=== PATIENT | male | born 1955 | race Caucasian/White ===

== ENCOUNTER 2016-08-22 12:38 | Inpatient (IN) | payer OTHER ==
[~2016-08-22] VITALS: Ht 162.6 cm; Wt 73.9 kg
[~2016-08-22 12:38] MED LIST: ASPI-1159 PO; ATOR20TA PO; AZOPT RIGHTEYE; CALC0.253 PO; COR25 PO; FERR-63 PO; FURO40TA5 PO; Lisinopril PO; POTA10TA15 PO; TRAV2.5D OP
[2016-08-22] MEDS ORDERED: FUROSEMIDE 40MG/4ML VIAL IV STA (15:09)
[2016-08-22 15:26] LABS: BASOPHILS % 1.3 % (0.0-2.0); EOSINOPHILS % 1.2 % (0.0-5.0); HEMATOCRIT. 37.4 % (42.0-52.0); LYMPHOCYTES % 18.1 % (20.0-50.0); MEAN CORPUSCULAR HEMOGLOBIN 25.2 pg (28.0-32.0); MEAN CORPUSCULAR VOLUME 78.4 fL (80.0-94.0); MONOCYTES % 8.9 % (2.0-8.0); NEUTROPHILS % 70.5 % (40.0-76.0); PLATELET 254 x1000/uL (130-400); RED BLOOD CELL COUNT 4.76 mill/uL (4.7-6.1); RED CELL DISTRIBUTION WIDTH 16.6 % (11.6-14.6)
[2016-08-22 15:34] LABS: INR 1.2; PARTIAL THROMBOPLASTIN TIME 28.7 sec (24.0-34.0); PROTHROMBIN TIME 12.3 sec
[2016-08-22 15:35] LABS: CARBON DIOXIDE 26 mEq/L (21-32); CHLORIDE 108 mEq/L (98-107)
[2016-08-22 15:41] LABS: TROPONIN I 0.04 ng/mL (0.00-0.04)
[2016-08-22] MEDS ORDERED: NA PHOS,M-B/NA PHOS,DI-BA ENEMA 118ML PR PRN (16:45)
[2016-08-22] MEDS ORDERED: ACETAMINOPHEN 650MG SUPP PR PRN (16:45)
[2016-08-22] MEDS ORDERED: ACETAMINOPHEN 650MG/20.3ML UDC GT PRN (16:45)
[2016-08-22] MEDS ORDERED: ONDANSETRON HCL 4MG/2ML VIAL IV PRN (16:45)
[2016-08-22] MEDS ORDERED: HYDROCODONE/ACETAMINOPHEN 5/325MG TABLET PO PRN (16:45)
[2016-08-22] MEDS ORDERED: CLONIDINE 0.1MG TABLET PO PRN (16:45)
[2016-08-22] MEDS ORDERED: MAGNESIUM/ALUMINUM HYDROXIDE/SIMETHICONE 30ML UDC PO PRN (16:45)
[2016-08-22] MEDS ORDERED: IPRATROPIUM/ALBUTEROL 0.5-3(2.5)MG/3ML NEB INH PRN (16:45)
[2016-08-22] MEDS ORDERED: DIPHENHYDRAMINE 50MG/ML VIAL IV PRN (16:45)
[2016-08-22] MEDS ORDERED: FUROSEMIDE 40MG/4ML VIAL IV SCH (17:00)
[2016-08-22 18:15] VITALS: BP 148/98
[2016-08-22] MEDS ORDERED: CEFTRIAXONE 1,000 MG in DEXTROSE 5% WATER 25 ML IV SCH (18:30)
[2016-08-22] MEDS ORDERED: METO50TA5 PO (18:38)
[2016-08-22 18:44] LABS: CLARITY URINE CLEAR (CLEAR); COLOR URINE YELLOW (YELLOW); GLUCOSE URINE NEGATIVE (NEGATIVE); KETONES URINE NEGATIVE (NEGATIVE); LEUKOCYTE ESTERASE URINE NEGATIVE (NEGATIVE); NITRITE URINE NEGATIVE (NEGATIVE); OCCULT BLOOD URINE NEGATIVE (NEGATIVE); PH URINE 5.5 (4.5-8.0); PROTEIN URINE NEGATIVE (NEGATIVE); SPECIFIC GRAVITY URINE 1.009 (1.005-1.030); UROBILINOGEN URINE 0.2 E.U./dL (0.2-1.0)
[2016-08-22 18:51] LABS: BG BASE EXCESS -2.7 mmol/L (-2.0-2.0); BG CARBOXYHEMOGLOBIN 0.2 % (0.5-1.5); BG DEOXYHEMOGLOBIN 4.4 % (0.0-5.0); BG FRACTION INSPIRED OXYGEN 21; BG HCO3 ACT 20.7 mmol/L (22.0-26.0); BG METHEMOGLOBIN 0.1 % (0.0-1.5); BG OXYGEN SATURATION 95.6 % (92.0-98.5); BG OXYHEMOGLOBIN 95.3 % (94.0-97.0); BG PCO2 31.3 mmHg (35.0-45.0); BG PH 7.438 (7.350-7.450); BG PO2 84.9 mmHg (75.0-100.0); BG SAMPLE SITE LEFT BRACHIAL; BG TOTAL HEMOGLOBIN 11.8 g/dL (12.0-18.0); BG VENT MODE ROOM AIR
[2016-08-22 19:19] LABS: HEPATITIS B SURFACE AB < 3.1 mIU/mL
[2016-08-22 19:30] LABS: HEPATITIS B SURFACE ANTIGEN NEGATIVE
[2016-08-22 19:40] VITALS: BP 150/97
[2016-08-22 19:58] LABS: HEPATITIS B CORE AB IGM NEGATIVE
[2016-08-22 20:00] VITALS: BP 150/97
[2016-08-22] MEDS: SODIUM CHLORIDE 0.9% INJ 3ML FLUSH IVF SCH (20:56)
[2016-08-22] MEDS: CEFTRIAXONE 1 G PREMIX 50 ML IV SCH (21:02)
[2016-08-22] MEDS ORDERED: DEXTROSE 50% WATER 50ML SYRINGE IV PRN (21:15)
[2016-08-22] MEDS: BLOOD SUGAR DIAGNOSTIC STRIP TEST SCH (21:30)
[2016-08-22] MEDS: INSULIN LISPRO 100 UNITS/ML SUBCUT SCH (21:33)
[2016-08-23] VITALS (8 sets, daily range): BP systolic 123–146; BP diastolic 79–96
[2016-08-23] MEDS: FUROSEMIDE 100MG/10ML VIAL IV SCH ×2 (05:22→18:16)
[2016-08-23] MEDS: SODIUM CHLORIDE 0.9% INJ 3ML FLUSH IVF SCH ×3 (05:22→20:48)
[2016-08-23] MEDS: BLOOD SUGAR DIAGNOSTIC STRIP TEST SCH ×4 (05:52→20:49)
[2016-08-23 07:30] LABS: BASOPHILS % 1.4 % (0.0-2.0); EOSINOPHILS % 1.4 % (0.0-5.0); HEMATOCRIT. 32.8 % (42.0-52.0); HEMOGLOBIN. 10.4 g/dL (14.0-18.0); LYMPHOCYTES % 12.9 % (20.0-50.0); MEAN CORPUSCULAR HEMOGLOBIN 24.6 pg (28.0-32.0); MEAN CORPUSCULAR VOLUME 77.7 fL (80.0-94.0); MEAN PLATELET VOLUME 9.9 fl (7.4-10.4); MONOCYTES % 7.9 % (2.0-8.0); NEUTROPHILS % 76.4 % (40.0-76.0); PLATELET 218 x1000/uL (130-400); RED BLOOD CELL COUNT 4.22 mill/uL (4.7-6.1); RED CELL DISTRIBUTION WIDTH 16.2 % (11.6-14.6)
[2016-08-23] MEDS ORDERED: LIDOCAINE HCL 1% 20ML VIAL (Pyxis) INJ ONE (07:39)
[2016-08-23] MEDS ORDERED: SODIUM BICARBONATE 4% (2.4MEQ) 5ML VIAL IV ONE (07:39)
[2016-08-23] MEDS ORDERED: HEPARIN 1000 UNITS/ML 10ML ONE (07:39)
[2016-08-23] MEDS ORDERED: FENTANYL CITRATE/PF 50MCG/ML 2ML VIAL ONE (07:41)
[2016-08-23] MEDS ORDERED: CEFAZOLIN 1000MG PREMIX 50 ML IV ONE ×2 (07:41→07:50)
[2016-08-23 07:48] LABS: CARBON DIOXIDE 23 mEq/L (21-32); CHLORIDE 110 mEq/L (98-107); HDL CHOLESTEROL 34 mg/dL (40-59); LDL CHOLESTEROL 108 mg/dL (5-100); PHOSPHORUS 4.1 mg/dL (2.5-4.9)
[2016-08-23] MEDS ORDERED: FENTANYL CITRATE/PF 50MCG/ML 2ML VIAL IV ONE (08:00)
[2016-08-23] MEDS ORDERED: INSULIN LISPRO 100 UNITS/ML SUBCUT SCH (08:10)
[2016-08-23] MEDS: INSULIN LISPRO 100 UNITS/ML SUBCUT SCH ×4 (08:10→21:14)
[2016-08-23] MEDS: LISINOPRIL 10MG TABLET PO SCH (12:15)
[2016-08-23] MEDS ORDERED: HEPARIN SODIUM 1,000 UNIT/1ML VIAL IV NR (12:15)
[2016-08-23] MEDS: FOLIC ACID/VITAMIN B COMP W-C TABLET PO SCH (13:32)
[2016-08-23] MEDS: ATORVASTATIN CALCIUM 20MG TABLET PO SCH (20:42)
[2016-08-23] MEDS: CEFTRIAXONE 1 G PREMIX 50 ML IV SCH (20:42)
[2016-08-23] MEDS: METOPROLOL TARTRATE 50MG TABLET PO SCH (20:43)
[2016-08-24] VITALS: BP 126/84
[2016-08-24 02:38] LABS: CLARITY URINE CLEAR (CLEAR); COLOR URINE YELLOW (YELLOW); GLUCOSE URINE TRACE (NEGATIVE); KETONES URINE NEGATIVE (NEGATIVE); LEUKOCYTE ESTERASE URINE NEGATIVE (NEGATIVE); NITRITE URINE NEGATIVE (NEGATIVE); OCCULT BLOOD URINE TRACE (NEGATIVE); PROTEIN URINE 3+ (NEGATIVE); SPECIFIC GRAVITY URINE 1.015 (1.005-1.030)
[2016-08-24 04:00] VITALS: BP 128/76
[2016-08-24] MEDS: SODIUM CHLORIDE 0.9% INJ 3ML FLUSH IVF SCH ×3 (05:29→21:15)
[2016-08-24] MEDS: FUROSEMIDE 100MG/10ML VIAL IV SCH ×2 (05:29→18:15)
[2016-08-24] MEDS: BLOOD SUGAR DIAGNOSTIC STRIP TEST SCH ×4 (05:33→21:19)
[2016-08-24 05:40] LABS: BASOPHILS % 1.1 % (0.0-2.0); EOSINOPHILS % 2.5 % (0.0-5.0); HEMATOCRIT. 31.7 % (42.0-52.0); HEMOGLOBIN. 10.1 g/dL (14.0-18.0); LYMPHOCYTES % 16.9 % (20.0-50.0); MEAN CORPUSCULAR HEMOGLOBIN 24.9 pg (28.0-32.0); MEAN CORPUSCULAR VOLUME 77.7 fL (80.0-94.0); MEAN PLATELET VOLUME 10.4 fl (7.4-10.4); MONOCYTES % 9.8 % (2.0-8.0); NEUTROPHILS % 69.7 % (40.0-76.0); PLATELET 169 x1000/uL (130-400); RED BLOOD CELL COUNT 4.07 mill/uL (4.7-6.1); RED CELL DISTRIBUTION WIDTH 16.5 % (11.6-14.6)
[2016-08-24 06:31] LABS: PHOSPHORUS 3.6 mg/dL (2.5-4.9)
[2016-08-24] MEDS: INSULIN LISPRO 100 UNITS/ML SUBCUT SCH ×4 (07:30→21:36)
[2016-08-24 08:00] VITALS: BP 128/88
[2016-08-24] MEDS: FOLIC ACID/VITAMIN B COMP W-C TABLET PO SCH (08:49)
[2016-08-24] MEDS: METOPROLOL TARTRATE 50MG TABLET PO SCH ×2 (08:50→21:14)
[2016-08-24] MEDS: LISINOPRIL 10MG TABLET PO SCH (08:50)
[2016-08-24 12:00] VITALS: BP 115/75
[2016-08-24 16:00] VITALS: BP 126/81
[2016-08-24 20:00] VITALS: BP 129/83
[2016-08-24] MEDS: ATORVASTATIN CALCIUM 20MG TABLET PO SCH (21:13)
[2016-08-24] MEDS: CEFTRIAXONE 1 G PREMIX 50 ML IV SCH (21:15)
[2016-08-25] VITALS: BP 134/82
[2016-08-25 04:00] VITALS: BP 130/94
[2016-08-25] MEDS: SODIUM CHLORIDE 0.9% INJ 3ML FLUSH IVF SCH ×3 (05:12→21:45)
[2016-08-25] MEDS: FUROSEMIDE 100MG/10ML VIAL IV SCH ×2 (05:12→18:12)
[2016-08-25] MEDS: BLOOD SUGAR DIAGNOSTIC STRIP TEST SCH ×4 (05:15→20:37)
[2016-08-25 05:43] LABS: BASOPHILS % 1.1 % (0.0-2.0); EOSINOPHILS % 1.9 % (0.0-5.0); HEMATOCRIT. 31.5 % (42.0-52.0); HEMOGLOBIN. 10.2 g/dL (14.0-18.0); LYMPHOCYTES % 13.8 % (20.0-50.0); MEAN CORPUSCULAR HEMOGLOBIN 24.9 pg (28.0-32.0); MEAN PLATELET VOLUME 10.1 fl (7.4-10.4); MONOCYTES % 8.4 % (2.0-8.0); NEUTROPHILS % 74.8 % (40.0-76.0); PLATELET 180 x1000/uL (130-400); RED BLOOD CELL COUNT 4.09 mill/uL (4.7-6.1); RED CELL DISTRIBUTION WIDTH 16.3 % (11.6-14.6)
[2016-08-25 05:59] LABS: PHOSPHORUS 4.1 mg/dL (2.5-4.9)
[2016-08-25] MEDS: INSULIN LISPRO 100 UNITS/ML SUBCUT SCH ×4 (07:48→20:40)
[2016-08-25 08:00] VITALS: BP 137/87
[2016-08-25] MEDS: METOPROLOL TARTRATE 50MG TABLET PO SCH ×2 (10:33→20:37)
[2016-08-25] MEDS: LISINOPRIL 10MG TABLET PO SCH (10:33)
[2016-08-25] MEDS: FOLIC ACID/VITAMIN B COMP W-C TABLET PO SCH (10:33)
[2016-08-25 12:00] VITALS: BP 118/85
[2016-08-25 16:00] VITALS: BP 122/79
[2016-08-25] MEDS ORDERED: BENAZEPRIL 5MG TABLET PO SCH (16:15)
[2016-08-25 20:00] VITALS: BP 125/82
[2016-08-25] MEDS: CEFTRIAXONE 1 G PREMIX 50 ML IV SCH (20:36)
[2016-08-25] MEDS: ATORVASTATIN CALCIUM 20MG TABLET PO SCH (20:37)
[2016-08-25] MEDS ORDERED: BENA40TA66 PO (21:02)
[2016-08-25] MEDS ORDERED: LEVO250T2 PO (21:02)
[2016-08-25] MEDS: CARVEDILOL 3.125 MG TABLET PO SCH (21:45)
[2016-08-26] VITALS: BP 116/75
[2016-08-26 04:00] VITALS: BP 118/80
[2016-08-26] MEDS: FUROSEMIDE 100MG/10ML VIAL IV SCH ×2 (06:03→17:43)
[2016-08-26] MEDS: SODIUM CHLORIDE 0.9% INJ 3ML FLUSH IVF SCH ×2 (06:04→14:00)
[2016-08-26 06:45] LABS: BASOPHILS % 1.1 % (0.0-2.0); EOSINOPHILS % 2.5 % (0.0-5.0); HEMATOCRIT. 30.4 % (42.0-52.0); HEMOGLOBIN. 9.8 g/dL (14.0-18.0); LYMPHOCYTES % 16.1 % (20.0-50.0); MEAN CORPUSCULAR HEMOGLOBIN 24.7 pg (28.0-32.0); MEAN CORPUSCULAR VOLUME 76.7 fL (80.0-94.0); MEAN PLATELET VOLUME 10.3 fl (7.4-10.4); MONOCYTES % 9.5 % (2.0-8.0); NEUTROPHILS % 70.8 % (40.0-76.0); PLATELET 147 x1000/uL (130-400); RED BLOOD CELL COUNT 3.97 mill/uL (4.7-6.1); RED CELL DISTRIBUTION WIDTH 16.2 % (11.6-14.6)
[2016-08-26 07:34] LABS: PHOSPHORUS 3.6 mg/dL (2.5-4.9)
[2016-08-26] MEDS: BLOOD SUGAR DIAGNOSTIC STRIP TEST SCH ×3 (07:40→17:50)
[2016-08-26 08:00] VITALS: BP 116/78
[2016-08-26] MEDS: INSULIN LISPRO 100 UNITS/ML SUBCUT SCH ×3 (08:10→18:20)
[2016-08-26] MEDS ORDERED: LISINOPRIL 5MG TABLET PO SCH (09:00)
[2016-08-26] MEDS: FOLIC ACID/VITAMIN B COMP W-C TABLET PO SCH (09:04)
[2016-08-26] MEDS: CARVEDILOL 3.125 MG TABLET PO SCH (09:04)
[2016-08-26 12:00] VITALS: BP 131/82
[2016-08-26 15:07] LABS: *CREATININE RANDOM URINE 51.4 mg/dL (Not Estab.); MICROALBUMIN RANDOM URINE 2680.8 ug/mL (Not Estab.); MICROALBUMIN/CREATININE RATIO 5215.6 mg/g creat (0.0-30.0)
[2016-08-26 16:00] VITALS: BP 119/73
[2016-08-26 18:04] VITALS: BP 119/73
[2016-08-27] MEDS ORDERED: EPOETIN ALFA 4000UNITS/ML VIAL SUBCUT SCH (21:00)
== END 2016-08-26 18:52 | disposition home or self-care (01) | DRG 167 ==
LOC: ER 15:46 → 7WST 15:56 → EDBEDREQ 15:58 → ENRESERV 16:15
PROVIDERS: ADMIT Family Medicine; ATTEND Family Medicine
PROC: 02H633Z Insertion of Infusion Device into Right Atrium, Percutaneous Approach (ICD-10-PCS; principal; 2016-08-23)
PROC: 5A1D60Z (ICD-10-PCS; 2016-08-23)
PROC: B2141ZZ Fluoroscopy of Right Heart using Low Osmolar Contrast (ICD-10-PCS; 2016-08-23)
PROC: B244ZZZ Ultrasonography of Right Heart (ICD-10-PCS; 2016-08-23)
DX: I13.2 Hypertensive heart and chronic kidney disease with heart failure and with stage 5 chronic kidney disease, or end stage renal disease (principal); E43 Unspecified severe protein-calorie malnutrition; N17.9 Acute kidney failure, unspecified; J18.9 Pneumonia, unspecified organism; N18.6 End stage renal disease; E11.21 Type 2 diabetes mellitus with diabetic nephropathy; D63.8 Anemia in other chronic diseases classified elsewhere; I25.5 Ischemic cardiomyopathy; E11.22 Type 2 diabetes mellitus with diabetic chronic kidney disease; E78.5 Hyperlipidemia, unspecified; I50.23 Acute on chronic systolic (congestive) heart failure; I25.10 Atherosclerotic heart disease of native coronary artery without angina pectoris; I25.2 Old myocardial infarction; Z79.82 Long term (current) use of aspirin; Z83.3 Family history of diabetes mellitus; Z87.891 Personal history of nicotine dependence; Z99.2 Dependence on renal dialysis; Z68.28 Body mass index [BMI] 28.0-28.9, adult; Z98.42 Cataract extraction status, left eye; Z98.41 Cataract extraction status, right eye
CPT/HCPCS: 36415; 36558; 36600; 71010; 76937; 77001; 80048; 80053; 80061; 81001; 81003; 82043; 82375; 82570; 82805; 82962; 83036; 83690; 83735; 83880; 84100; 84443; 84484; 85025; 85610; 85730; 86705; 86706; 86803; 87040; 87340; 93005; 93306; 96374; 99285; C1750; J0690; J0696; J1644; J1815; J1940; J3010; J3490; J7030; J7050

== ENCOUNTER 2017-06-08 13:57 | Emergency (ER) | payer OTHER ==
[~2017-06-08] VITALS: Ht 162.6 cm; Wt 68.0 kg
[~2017-06-08 13:57] MED LIST changes: -ATOR20TA PO; -AZOPT RIGHTEYE; +BENA40TA66 PO; -CALC0.253 PO; -COR25 PO; -FERR-63 PO; -FURO40TA5 PO; +LEVO250T2 PO; -Lisinopril PO; +METO-539 PO; -POTA10TA15 PO; -TRAV2.5D OP
[2017-06-08] MEDS ORDERED: benazepril (14:39)
[2017-06-08] MEDS ORDERED: CARV3.1242 PO (14:39)
[2017-06-08] MEDS ORDERED: CLOT15CR2 TP (14:39)
[2017-06-08] MEDS ORDERED: FURO40TA5 PO (14:39)
[2017-06-08 14:40] VITALS: BP 147/93
[2017-06-08] MEDS ORDERED: insulin (14:40)
[2017-06-08 15:05] LABS: BASOPHILS % 1.1 % (0.0-2.0); EOSINOPHILS % 3.8 % (0.0-5.0); HEMATOCRIT. 33.1 % (42.0-52.0); HEMOGLOBIN. 11.6 g/dL (14.0-18.0); MEAN CORPUSCULAR HEMOGLOBIN 34.2 pg (28.0-32.0); MEAN CORPUSCULAR VOLUME 97.6 fL (80.0-94.0); MEAN PLATELET VOLUME 10.1 fl (7.4-10.4); MONOCYTES % 5.6 % (2.0-8.0); NEUTROPHILS % 71.5 % (40.0-76.0); PLATELET 206 x1000/uL (130-400); RED BLOOD CELL COUNT 3.39 mill/uL (4.7-6.1); RED CELL DISTRIBUTION WIDTH 16.3 % (11.6-14.6)
[2017-06-08] MEDS ORDERED: BACITRACIN ZINC OINT UDPKT TOP ONE (16:00)
== END 2017-06-08 16:24 | disposition home or self-care (01) ==
LOC: ER 16:11
DX: E11.69 Type 2 diabetes mellitus with other specified complication (principal); L03.031 Cellulitis of right toe; E11.621 Type 2 diabetes mellitus with foot ulcer; L97.519 Non-pressure chronic ulcer of other part of right foot with unspecified severity; I12.0 Hypertensive chronic kidney disease with stage 5 chronic kidney disease or end stage renal disease; E11.22 Type 2 diabetes mellitus with diabetic chronic kidney disease; N18.6 End stage renal disease; Z79.4 Long term (current) use of insulin; Z79.82 Long term (current) use of aspirin; Z99.2 Dependence on renal dialysis; Z98.49 Cataract extraction status, unspecified eye
CPT/HCPCS: 36415; 73660; 80048; 85025; 99285

== ENCOUNTER 2018-01-14 09:23 | Emergency (ER) | payer OTHER ==
[~2018-01-14] VITALS: Ht 162.6 cm; Wt 65.0 kg
[~2018-01-14 09:23] MED LIST changes: +CARV3.1242 PO; +CLOT15CR2 TP; +FURO40TA5 PO; -METO-539 PO; +benazepril; +insulin
[2018-01-14] MEDS ORDERED: DIPHENHYDRAMINE 25MG CAPSULE PO ONE (10:30)
[2018-01-14 10:59] LABS: EOSINOPHILS % 2.8 % (0.0-5.0); HEMATOCRIT. 37.3 % (42.0-52.0); HEMOGLOBIN. 12.2 g/dL (14.0-18.0); LYMPHOCYTES % 10.1 % (20.0-50.0); MEAN CORPUSCULAR HEMOGLOBIN 33.5 pg (28.0-32.0); MEAN CORPUSCULAR VOLUME 102.8 fL (80.0-94.0); MEAN PLATELET VOLUME 10.5 fl (7.4-10.4); MONOCYTES % 7.7 % (2.0-8.0); NEUTROPHILS % 78.4 % (40.0-76.0); PLATELET 217 x1000/uL (130-400); RED BLOOD CELL COUNT 3.63 mill/uL (4.7-6.1); RED CELL DISTRIBUTION WIDTH 17.4 % (11.6-14.6)
[2018-01-14 11:04] LABS: CHLORIDE 93 mEq/L (98-107)
[2018-01-14 13:08] VITALS: BP 123/86
== END 2018-01-14 13:10 | disposition home or self-care (01) ==
LOC: ER 09:52
DX: L29.9 Pruritus, unspecified (principal); K80.20 Calculus of gallbladder without cholecystitis without obstruction; I12.0 Hypertensive chronic kidney disease with stage 5 chronic kidney disease or end stage renal disease; E11.22 Type 2 diabetes mellitus with diabetic chronic kidney disease; N18.6 End stage renal disease; H26.9 Unspecified cataract; Z79.4 Long term (current) use of insulin; Z99.2 Dependence on renal dialysis; Z79.82 Long term (current) use of aspirin
CPT/HCPCS: 36415; 76700; 82247; 93005; 99285; Q0163

== ENCOUNTER 2018-03-14 12:00 | Emergency (ER) | payer MEDICARE, OTHER ==
[~2018-03-14] VITALS: Ht 165.1 cm; Wt 64.0 kg
[2018-03-14] MEDS ORDERED: CEFTRIAXONE 1 G PREMIX 50 ML IV ONE (13:30)
[2018-03-14] MEDS ORDERED: VANCOMYCIN 1 G PREMIX 200 ML IV SCH (13:30)
[2018-03-14 14:36] LABS: BASOPHILS % 1.1 % (0.0-2.0); HEMATOCRIT. 36.2 % (42.0-52.0); LYMPHOCYTES % 11.9 % (20.0-50.0); MEAN CORPUSCULAR HEMOGLOBIN 33.5 pg (28.0-32.0); MEAN CORPUSCULAR VOLUME 100.7 fL (80.0-94.0); MEAN PLATELET VOLUME 10.3 fl (7.4-10.4); MONOCYTES % 6.8 % (2.0-8.0); NEUTROPHILS % 79.2 % (40.0-76.0); PLATELET 207 x1000/uL (130-400); RED BLOOD CELL COUNT 3.59 mill/uL (4.7-6.1); RED CELL DISTRIBUTION WIDTH 16.9 % (11.6-14.6)
[2018-03-14 14:42] LABS: CHLORIDE 97 mEq/L (98-107); INR 1.1; PROTHROMBIN TIME 11.4 sec (9.1-11.1)
[2018-03-14 16:46] VITALS: BP 128/85
== END 2018-03-14 17:54 | disposition home or self-care (01) ==
LOC: ER 14:42
DX: L03.115 Cellulitis of right lower limb (principal); E11.22 Type 2 diabetes mellitus with diabetic chronic kidney disease; I12.9 Hypertensive chronic kidney disease with stage 1 through stage 4 chronic kidney disease, or unspecified chronic kidney disease; N18.9 Chronic kidney disease, unspecified; E11.65 Type 2 diabetes mellitus with hyperglycemia; I51.9 Heart disease, unspecified; Z99.2 Dependence on renal dialysis; Z79.4 Long term (current) use of insulin; Z79.899 Other long term (current) drug therapy
CPT/HCPCS: 36415; 80053; 83605; 85025; 85610; 87040; 93971; 96365; 96367; 99284; J0696; J3370

== ENCOUNTER 2018-05-20 18:57 | Inpatient (IN) | payer MEDICARE, OTHER ==
[~2018-05-20] VITALS: Ht 162.6 cm; Wt 65.3 kg
[2018-05-20 23:35] LABS: CHLORIDE 98 mEq/L (98-107)
[2018-05-20 23:36] LABS: HEMATOCRIT. 33.4 % (42.0-52.0); HEMOGLOBIN. 11.2 g/dL (14.0-18.0); MEAN CORPUSCULAR HEMOGLOBIN 33.8 pg (28.0-32.0); MEAN CORPUSCULAR VOLUME 100.7 fL (80.0-94.0); MEAN PLATELET VOLUME 11.6 fl (7.4-10.4); PLATELET 189 x1000/uL (130-400); RED BLOOD CELL COUNT 3.31 mill/uL (4.7-6.1); RED CELL DISTRIBUTION WIDTH 15.1 % (11.6-14.6)
[2018-05-21] MEDS ORDERED: AZITHROMYCIN 500 MG in DEXT 5% WATER 250 ML IV ONE (01:15)
[2018-05-21] MEDS ORDERED: CEFTRIAXONE 1 G PREMIX 50 ML IV ONE (01:15)
[2018-05-21 04:46] LABS: PLATELET ESTIMATE NORMAL
[2018-05-21] MEDS ORDERED: SODIUM CHLORIDE 0.9% 1,000 ML IV ONE (04:52)
[2018-05-21] MEDS ORDERED: DEXTROSE 50% WATER 50ML SYRINGE IV PRN (06:30)
[2018-05-21] MEDS ORDERED: DOCUSATE SODIUM 100MG CAPSULE PO PRN (06:30)
[2018-05-21] MEDS ORDERED: LORAZEPAM 2MG/ML CPJ IV PRN (06:30)
[2018-05-21] MEDS ORDERED: GUAIFENESIN 200MG/10ML SUGAR FREE UDC PO PRN (06:30)
[2018-05-21] MEDS ORDERED: ONDANSETRON HCL 4MG/2ML INJ IV PRN (06:30)
[2018-05-21] MEDS ORDERED: CEFTRIAXONE 1 G PREMIX 50 ML IV SCH (06:30)
[2018-05-21] MEDS ORDERED: HYDRALAZINE 20MG/ML VIAL IV PRN (06:30)
[2018-05-21] MEDS ORDERED: HYDROCODONE/ACETAMINOPHEN 10/325MG TABLET PO PRN (06:30)
[2018-05-21] MEDS ORDERED: MAGNESIUM/ALUMINUM HYDROXIDE/SIMETHICONE 30ML UDC PO PRN (06:30)
[2018-05-21] MEDS ORDERED: ENOXAPARIN 40MG/0.4ML SYR SUBCUT SCH (06:30)
[2018-05-21] MEDS ORDERED: DIPHENHYDRAMINE 50MG/ML VIAL IV PRN (06:30)
[2018-05-21] MEDS ORDERED: HYDROMORPHONE HCL/PF 2MG/ML CPJ IV PRN (06:30)
[2018-05-21] MEDS ORDERED: IPRATROPIUM/ALBUTEROL 0.5-3(2.5)MG/3ML NEB INH PRN (06:30)
[2018-05-21] MEDS ORDERED: CLONIDINE 0.1MG TABLET PO PRN (06:30)
[2018-05-21] MEDS: INSULIN LISPRO 100 UNITS/ML SUBCUT SCH ×4 (08:20→20:22)
[2018-05-21] MEDS: BLOOD SUGAR DIAGNOSTIC STRIP TEST SCH ×4 (08:52→20:18)
[2018-05-21] MEDS ORDERED: CEFTRIAXONE 1,000 MG in DEXTROSE 5% WATER 50 ML IV SCH (10:00)
[2018-05-21] MEDS: ENOXAPARIN 30MG/0.3ML SYR SUBCUT SCH (10:07)
[2018-05-21] MEDS: ASPIRIN 81MG EC TABLET PO SCH (10:07)
[2018-05-21 10:33] LABS: T4 FREE 1.31 ng/dL (0.76-1.46)
[2018-05-21] MEDS ORDERED: AZITHROMYCIN 500 MG in DEXT 5% WATER 250 ML IV SCH (11:00)
[2018-05-21 11:32] VITALS: BP 97/58
[2018-05-21 12:00] VITALS: BP 98/61
[2018-05-21] MEDS: SODIUM CHLORIDE 0.9% INJ 3ML FLUSH IVF SCH ×2 (15:22→22:23)
[2018-05-21 15:50] VITALS: BP 85/56
[2018-05-21] MEDS: PANTOPRAZOLE SODIUM 40 MG/VIAL IV SCH (16:40)
[2018-05-21 18:50] LABS: CREATINE KINASE MB FRACTION 1.6 ng/mL (0.5-3.6)
[2018-05-21 20:00] VITALS: BP 89/51
[2018-05-21] MEDS: GUAIFENESIN 600MG ER TABLET PO SCH (20:18)
[2018-05-21 20:54] LABS: HEPATITIS B SURFACE ANTIGEN NEGATIVE
[2018-05-21 21:24] LABS: HEPATITIS A AB IGM NEGATIVE (NEGATIVE)
[2018-05-22] VITALS: BP 101/59
[2018-05-22 02:27] LABS: INR 1.3; PROTHROMBIN TIME 13.5 sec (9.1-11.1)
[2018-05-22 02:38] LABS: CREATINE KINASE MB FRACTION 1.6 ng/mL (0.5-3.6)
[2018-05-22 04:00] VITALS: BP 105/62
[2018-05-22] MEDS: SODIUM CHLORIDE 0.9% INJ 3ML FLUSH IVF SCH ×3 (05:27→22:07)
[2018-05-22] MEDS: BLOOD SUGAR DIAGNOSTIC STRIP TEST SCH ×4 (05:27→20:18)
[2018-05-22] MEDS: ACETAMINOPHEN 325MG TABLET PO PRN (05:33)
[2018-05-22 06:54] LABS: CHLORIDE 100 mEq/L (98-107)
[2018-05-22 06:57] LABS: HEMATOCRIT. 34.4 % (42.0-52.0); HEMOGLOBIN. 11.4 g/dL (14.0-18.0); MEAN CORPUSCULAR HEMOGLOBIN 33.6 pg (28.0-32.0); MEAN CORPUSCULAR VOLUME 101.6 fL (80.0-94.0); MEAN PLATELET VOLUME 11.4 fl (7.4-10.4); PLATELET 214 x1000/uL (130-400); RED BLOOD CELL COUNT 3.39 mill/uL (4.7-6.1); RED CELL DISTRIBUTION WIDTH 15.1 % (11.6-14.6)
[2018-05-22 07:09] LABS: PHOSPHORUS 5.6 mg/dL (2.5-4.9)
[2018-05-22 07:10] LABS: T4 FREE 1.33 ng/dL (0.76-1.46)
[2018-05-22 07:46] VITALS: BP 97/62
[2018-05-22] MEDS: INSULIN LISPRO 100 UNITS/ML SUBCUT SCH ×4 (07:47→20:40)
[2018-05-22] MEDS: GUAIFENESIN 600MG ER TABLET PO SCH ×2 (08:07→20:17)
[2018-05-22] MEDS: ASPIRIN 81MG EC TABLET PO SCH (08:07)
[2018-05-22] MEDS: PANTOPRAZOLE SODIUM 40 MG/VIAL IV SCH (08:07)
[2018-05-22] MEDS: ENOXAPARIN 30MG/0.3ML SYR SUBCUT SCH (08:08)
[2018-05-22 12:00] VITALS: BP 91/60
[2018-05-22] MEDS: AZITHROMYCIN 500 MG in DEXT 5% WATER 250 ML IV SCH (15:34)
[2018-05-22 16:00] VITALS: BP 95/59
[2018-05-22] MEDS: CEFTRIAXONE 1,000 MG in DEXTROSE 5% WATER 50 ML IV SCH (17:11)
[2018-05-22 19:33] LABS: PLATELET ESTIMATE NORMAL
[2018-05-22 20:00] VITALS: BP 95/59
[2018-05-23] VITALS: BP 98/63
[2018-05-23] MEDS: ACETAMINOPHEN 325MG TABLET PO PRN (00:32)
[2018-05-23 04:00] VITALS: BP 104/74
[2018-05-23] MEDS: BLOOD SUGAR DIAGNOSTIC STRIP TEST SCH ×4 (06:56→20:15)
[2018-05-23] MEDS: SODIUM CHLORIDE 0.9% INJ 3ML FLUSH IVF SCH ×3 (06:56→21:24)
[2018-05-23 08:00] VITALS: BP 103/63
[2018-05-23] MEDS: INSULIN LISPRO 100 UNITS/ML SUBCUT SCH ×4 (08:10→20:15)
[2018-05-23] MEDS: ENOXAPARIN 30MG/0.3ML SYR SUBCUT SCH (09:49)
[2018-05-23] MEDS: AZITHROMYCIN 500 MG in DEXT 5% WATER 250 ML IV SCH (09:49)
[2018-05-23] MEDS: FAMOTIDINE 20MG/2ML VIAL IV SCH (09:49)
[2018-05-23] MEDS: ASPIRIN 81MG EC TABLET PO SCH (09:49)
[2018-05-23] MEDS: GUAIFENESIN 600MG ER TABLET PO SCH ×2 (09:49→20:15)
[2018-05-23] MEDS: CEFTRIAXONE 1,000 MG in DEXTROSE 5% WATER 50 ML IV SCH (11:43)
[2018-05-23 12:00] VITALS: BP 101/54
[2018-05-23 16:00] VITALS: BP 103/61
[2018-05-23 20:00] VITALS: BP 96/59
[2018-05-24] VITALS: BP 90/59
[2018-05-24] MEDS: ACETAMINOPHEN 325MG TABLET PO PRN (01:02)
[2018-05-24 04:00] VITALS: BP 101/65
[2018-05-24] MEDS: SODIUM CHLORIDE 0.9% INJ 3ML FLUSH IVF SCH ×2 (05:26→14:36)
[2018-05-24] MEDS: BLOOD SUGAR DIAGNOSTIC STRIP TEST SCH ×2 (05:51→12:40)
[2018-05-24 06:19] LABS: HEMATOCRIT. 33.5 % (42.0-52.0); HEMOGLOBIN. 11.1 g/dL (14.0-18.0); MEAN CORPUSCULAR HEMOGLOBIN 33.2 pg (28.0-32.0); MEAN CORPUSCULAR VOLUME 100.5 fL (80.0-94.0); MEAN PLATELET VOLUME 10.9 fl (7.4-10.4); PLATELET 206 x1000/uL (130-400); RED BLOOD CELL COUNT 3.33 mill/uL (4.7-6.1)
[2018-05-24 07:05] LABS: PHOSPHORUS 4.8 mg/dL (2.5-4.9)
[2018-05-24] MEDS: INSULIN LISPRO 100 UNITS/ML SUBCUT SCH ×2 (08:10→13:10)
[2018-05-24] MEDS ORDERED: AZITHROMYCIN 500 MG TABLET PO SCH (09:00)
[2018-05-24 09:30] VITALS: BP 104/67
[2018-05-24 10:29] LABS: PLATELET ESTIMATE NORMAL
[2018-05-24] MEDS: ASPIRIN 81MG EC TABLET PO SCH (10:41)
[2018-05-24] MEDS: GUAIFENESIN 600MG ER TABLET PO SCH (10:41)
[2018-05-24] MEDS: ENOXAPARIN 30MG/0.3ML SYR SUBCUT SCH (10:42)
[2018-05-24] MEDS: CEFTRIAXONE 1,000 MG in DEXTROSE 5% WATER 50 ML IV SCH (10:42)
[2018-05-24] MEDS: FAMOTIDINE 20MG/2ML VIAL IV SCH (10:43)
[2018-05-24 12:00] VITALS: BP 118/50
[2018-05-24 13:57] VITALS: BP 113/74
[2018-05-24 16:00] VITALS: BP 113/74
== END 2018-05-24 17:06 | disposition home or self-care (01) | DRG 205 ==
LOC: ER 18:57 → 7WST 05-21 03:30 → EDBEDREQTM 05-21 03:31 → EDBEDREQ 05-21 03:31 → ENRESERV 05-21 07:16
PROVIDERS: ADMIT Internal Medicine; ATTEND Internal Medicine
PROC: 5A1D70Z Performance of Urinary Filtration, Intermittent, Less than 6 Hours Per Day (ICD-10-PCS; principal; 2018-05-21)
PROC: 5A1D70Z Performance of Urinary Filtration, Intermittent, Less than 6 Hours Per Day (ICD-10-PCS; 2018-05-24)
DX: M94.0 Chondrocostal junction syndrome [Tietze] (principal); N18.6 End stage renal disease; E46 Unspecified protein-calorie malnutrition; I13.2 Hypertensive heart and chronic kidney disease with heart failure and with stage 5 chronic kidney disease, or end stage renal disease; I50.20 Unspecified systolic (congestive) heart failure; R18.8 Other ascites; I42.9 Cardiomyopathy, unspecified; D64.9 Anemia, unspecified; K21.9 Gastro-esophageal reflux disease without esophagitis; K74.60 Unspecified cirrhosis of liver; K80.20 Calculus of gallbladder without cholecystitis without obstruction; F10.20 Alcohol dependence, uncomplicated; R14.0 Abdominal distension (gaseous); E11.36 Type 2 diabetes mellitus with diabetic cataract; E78.5 Hyperlipidemia, unspecified; M54.5 Low back pain; E11.22 Type 2 diabetes mellitus with diabetic chronic kidney disease; I25.10 Atherosclerotic heart disease of native coronary artery without angina pectoris; Z79.82 Long term (current) use of aspirin; Z79.899 Other long term (current) drug therapy; Z99.2 Dependence on renal dialysis; Z86.73 Personal history of transient ischemic attack (TIA), and cerebral infarction without residual deficits; Z87.891 Personal history of nicotine dependence; Z68.24 Body mass index [BMI] 24.0-24.9, adult
CPT/HCPCS: 36415; 71045; 74176; 74181; 76700; 78227; 80048; 80061; 80076; 82550; 82553; 82962; 83036; 83605; 83735; 83880; 84100; 84134; 84439; 84443; 84484; 85379; 86705; 86709; 86803; 87340; 87804; 93005; 93306; 93970; 96365; 96366; 96368; 99291; A9537; C9113; J0456; J0696; J1650; J3490; J7030; J7050; J7060

== ENCOUNTER 2018-06-12 19:24 | Inpatient (IN) | payer MEDICARE, OTHER ==
[~2018-06-12] VITALS: Ht 165.1 cm; Wt 61.2 kg
[2018-06-13] MEDS ORDERED: HYDROCODONE/ACETAMINOPHEN 5/325MG TABLET PO ONE (00:15)
[2018-06-13] MEDS ORDERED: ONDANSETRON HCL 4MG/2ML INJ IV STA (01:36)
[2018-06-13] MEDS ORDERED: MORPHINE SULFATE 4 MG/ML CPJ (NOT FOR IM USE) IV STA (01:36)
[2018-06-13 01:50] LABS: CHLORIDE 100 mEq/L (98-107)
[2018-06-13 01:52] LABS: HEMATOCRIT. 33.1 % (42.0-52.0); HEMOGLOBIN. 11.3 g/dL (14.0-18.0); MEAN CORPUSCULAR HEMOGLOBIN 33.9 pg (28.0-32.0); MEAN CORPUSCULAR VOLUME 99.7 fL (80.0-94.0); RED BLOOD CELL COUNT 3.32 mill/uL (4.7-6.1); RED CELL DISTRIBUTION WIDTH 17.2 % (11.6-14.6)
[2018-06-13 01:55] LABS: INR 1.3; PARTIAL THROMBOPLASTIN TIME 29.4 sec (23.4-31.0); PROTHROMBIN TIME 12.7 sec (9.1-11.1)
[2018-06-13] MEDS ORDERED: ACETAMINOPHEN 325MG TABLET PO PRN (04:45)
[2018-06-13] MEDS ORDERED: ENOXAPARIN 40MG/0.4ML SYR SUBCUT SCH (04:45)
[2018-06-13] MEDS ORDERED: DIPHENHYDRAMINE 50MG/ML VIAL IV PRN (04:45)
[2018-06-13] MEDS ORDERED: MAGNESIUM/ALUMINUM HYDROXIDE/SIMETHICONE 30ML UDC PO PRN (04:45)
[2018-06-13] MEDS ORDERED: ONDANSETRON HCL 4MG/2ML INJ IV PRN (04:45)
[2018-06-13] MEDS ORDERED: CLONIDINE 0.1MG TABLET PO PRN (04:45)
[2018-06-13 05:28] LABS: PLATELET ESTIMATE NORMAL
[2018-06-13 05:29] LABS: PLATELET 198 x1000/uL (130-400)
[2018-06-13] MEDS: AMLODIPINE 10MG TABLET PO SCH (09:00)
[2018-06-13] MEDS: ENOXAPARIN 30MG/0.3ML SYR SUBCUT SCH (09:00)
[2018-06-13] MEDS: HYDROMORPHONE HCL/PF 2MG/ML CPJ IV PRN (09:09)
[2018-06-13 09:33] VITALS: BP 104/65
[2018-06-13 10:00] VITALS: BP 104/65
[2018-06-13 12:00] VITALS: BP 93/55
[2018-06-13] MEDS ORDERED: DEXTROSE 50% WATER 50ML SYRINGE IV PRN (19:30)
[2018-06-13 20:00] VITALS: BP 102/60
[2018-06-13] MEDS: HYDROCODONE/ACETAMINOPHEN 5/325MG TABLET PO PRN (20:31)
[2018-06-13] MEDS: INSULIN LISPRO 100 UNITS/ML SUBCUT SCH (21:00)
[2018-06-13] MEDS: BLOOD SUGAR DIAGNOSTIC STRIP TEST SCH (21:00)
[2018-06-14] VITALS: BP 109/61
[2018-06-14] MEDS: DOCUSATE SODIUM 100MG CAPSULE PO PRN (00:24)
[2018-06-14] MEDS: HYDROMORPHONE HCL/PF 2MG/ML CPJ IV PRN ×5 (00:24→17:56)
[2018-06-14 04:00] VITALS: BP 108/70
[2018-06-14] MEDS: BLOOD SUGAR DIAGNOSTIC STRIP TEST SCH ×4 (07:20→21:00)
[2018-06-14 07:47] LABS: HEMATOCRIT. 32.3 % (42.0-52.0); HEMOGLOBIN. 10.6 g/dL (14.0-18.0); MEAN CORPUSCULAR HEMOGLOBIN 33.2 pg (28.0-32.0); MEAN CORPUSCULAR VOLUME 101.2 fL (80.0-94.0); PLATELET 206 x1000/uL (130-400); RED BLOOD CELL COUNT 3.19 mill/uL (4.7-6.1); RED CELL DISTRIBUTION WIDTH 18.1 % (11.6-14.6)
[2018-06-14 07:48] LABS: CHLORIDE 98 mEq/L (98-107)
[2018-06-14] MEDS: INSULIN LISPRO 100 UNITS/ML SUBCUT SCH ×4 (07:50→21:00)
[2018-06-14 08:00] VITALS: BP 99/61
[2018-06-14 08:01] LABS: GAMMA GLUTAMYL TRANSPEPTIDASE 748 IU/L (11-50); PHOSPHORUS 5.6 mg/dL (2.5-4.9)
[2018-06-14] MEDS: AMLODIPINE 10MG TABLET PO SCH (08:59)
[2018-06-14] MEDS: ENOXAPARIN 30MG/0.3ML SYR SUBCUT SCH (09:00)
[2018-06-14] MEDS ORDERED: VANCOMYCIN HCL 500 MG/VIAL ONE (09:58)
[2018-06-14] MEDS ORDERED: BACITRACIN 15GM TUBE TOP ONE (09:58)
[2018-06-14 10:21] LABS: PLATELET ESTIMATE NORMAL
[2018-06-14] MEDS ORDERED: PROPOFOL 200MG/20ML VIAL IV ONE (12:14)
[2018-06-14] MEDS ORDERED: FENTANYL CITRATE/PF 50MCG/ML 2ML VIAL ONE (12:14)
[2018-06-14] MEDS ORDERED: ETOMIDATE 2MG/ML 10ML VIAL IV ONE (12:14)
[2018-06-14] MEDS ORDERED: LIDOCAINE HCL/PF 1% 10 MG/ML 5ML VIAL ONE (12:17)
[2018-06-14] MEDS ORDERED: CEFAZOLIN SODIUM 1000MG/VIAL ONE (12:30)
[2018-06-14] MEDS ORDERED: PHENYLEPHRINE HCL 10 MG/ML 1ML (IV VIAL) IV ONE (12:50)
[2018-06-14] MEDS ORDERED: EPHEDRINE SULFATE 50MG/ML VIAL ONE (12:50)
[2018-06-14] MEDS: FENTANYL CITRATE/PF 50MCG/ML 2ML VIAL IV PRN ×2 (13:21→13:30)
[2018-06-14 16:00] VITALS: BP 114/71
[2018-06-14 20:00] VITALS: BP 102/64
[2018-06-15] VITALS: BP 95/60
[2018-06-15] MEDS: HYDROCODONE/ACETAMINOPHEN 5/325MG TABLET PO PRN ×2 (00:58→18:34)
[2018-06-15] MEDS: DOCUSATE SODIUM 100MG CAPSULE PO PRN (00:59)
[2018-06-15 04:00] VITALS: BP 106/63
[2018-06-15] MEDS: BLOOD SUGAR DIAGNOSTIC STRIP TEST SCH ×4 (06:37→21:00)
[2018-06-15 07:21] LABS: HEMATOCRIT. 29.2 % (42.0-52.0); HEMOGLOBIN. 9.7 g/dL (14.0-18.0); MEAN CORPUSCULAR HEMOGLOBIN 33.4 pg (28.0-32.0); MEAN CORPUSCULAR VOLUME 100.1 fL (80.0-94.0); MEAN PLATELET VOLUME 10.9 fl (7.4-10.4); PLATELET 220 x1000/uL (130-400); RED BLOOD CELL COUNT 2.92 mill/uL (4.7-6.1); RED CELL DISTRIBUTION WIDTH 18.3 % (11.6-14.6)
[2018-06-15] MEDS: INSULIN LISPRO 100 UNITS/ML SUBCUT SCH ×4 (07:50→21:00)
[2018-06-15 08:00] VITALS: BP 101/59
[2018-06-15 08:08] LABS: PHOSPHORUS 7.5 mg/dL (2.5-4.9)
[2018-06-15] MEDS: AMLODIPINE 10MG TABLET PO SCH (08:21)
[2018-06-15] MEDS: ENOXAPARIN 30MG/0.3ML SYR SUBCUT SCH (08:22)
[2018-06-15] MEDS: GUAIFENESIN 200MG/10ML SUGAR FREE UDC PO PRN (08:40)
[2018-06-15] MEDS: HYDROMORPHONE HCL/PF 2MG/ML CPJ IV PRN (09:21)
[2018-06-15 11:50] VITALS: BP 98/66
[2018-06-15 12:44] LABS: PLATELET ESTIMATE NORMAL
[2018-06-15] MEDS ORDERED: MAGNESIUM HYDROXIDE 400MG/5ML 30ML UDC PO PRN (14:00)
[2018-06-15] MEDS ORDERED: LACTULOSE 20G/30ML UDC PO PRN (14:00)
[2018-06-15 16:00] VITALS: BP 104/61
[2018-06-15] MEDS ORDERED: DOCUSATE SODIUM 100MG CAPSULE PO SCH (17:00)
[2018-06-15] MEDS: DOCUSATE SODIUM 100MG CAPSULE PO SCH (18:34)
[2018-06-15 20:00] VITALS: BP 111/67
[2018-06-16] VITALS: BP 110/64
[2018-06-16 04:00] VITALS: BP 118/62
[2018-06-16 06:32] LABS: HEMATOCRIT. 27.8 % (42.0-52.0); HEMOGLOBIN. 9.5 g/dL (14.0-18.0); MEAN CORPUSCULAR HEMOGLOBIN 33.8 pg (28.0-32.0); MEAN CORPUSCULAR VOLUME 99.2 fL (80.0-94.0); MEAN PLATELET VOLUME 10.5 fl (7.4-10.4); PLATELET 217 x1000/uL (130-400)
[2018-06-16] MEDS: INSULIN LISPRO 100 UNITS/ML SUBCUT SCH ×4 (06:52→22:26)
[2018-06-16] MEDS: BLOOD SUGAR DIAGNOSTIC STRIP TEST SCH ×4 (06:52→22:25)
[2018-06-16 07:10] LABS: PHOSPHORUS 6.3 mg/dL (2.5-4.9)
[2018-06-16 08:00] VITALS: BP 96/57
[2018-06-16] MEDS: AMLODIPINE 10MG TABLET PO SCH (09:00)
[2018-06-16] MEDS: DOCUSATE SODIUM 100MG CAPSULE PO SCH ×2 (10:01→18:02)
[2018-06-16] MEDS: ENOXAPARIN 30MG/0.3ML SYR SUBCUT SCH (10:02)
[2018-06-16 12:00] VITALS: BP 94/55
[2018-06-16 14:08] LABS: PLATELET ESTIMATE NORMAL
[2018-06-16 16:00] VITALS: BP 95/55
[2018-06-16] MEDS: GUAIFENESIN 200MG/10ML SUGAR FREE UDC PO PRN (18:10)
[2018-06-16] MEDS ORDERED: EPOETIN ALFA 10000UNITS/ML VIAL SUBCUT SCH (21:00)
[2018-06-16] MEDS ORDERED: ATORVASTATIN CALCIUM 40MG TABLET PO SCH (21:00)
[2018-06-16 22:27] VITALS: BP 102/67
== END 2018-06-16 23:45 | DRG 480 ==
LOC: ER 19:24 → 6EST 06-13 01:58 → SUPCPDRO 06-13 04:35 → ENRESERV 06-13 07:30
PROVIDERS: ADMIT Hospitalist; ATTEND Hospitalist
PROC: 0QS636Z Reposition Right Upper Femur with Intramedullary Internal Fixation Device, Percutaneous Approach (ICD-10-PCS; principal; 2018-06-14)
PROC: 5A1D70Z Performance of Urinary Filtration, Intermittent, Less than 6 Hours Per Day (ICD-10-PCS; 2018-06-14)
PROC: 5A1D70Z Performance of Urinary Filtration, Intermittent, Less than 6 Hours Per Day (ICD-10-PCS; 2018-06-16)
DX: S72.141A Displaced intertrochanteric fracture of right femur, initial encounter for closed fracture (principal); N18.6 End stage renal disease; I50.33 Acute on chronic diastolic (congestive) heart failure; E43 Unspecified severe protein-calorie malnutrition; K76.7 Hepatorenal syndrome; I13.2 Hypertensive heart and chronic kidney disease with heart failure and with stage 5 chronic kidney disease, or end stage renal disease; I42.9 Cardiomyopathy, unspecified; K70.31 Alcoholic cirrhosis of liver with ascites; D64.9 Anemia, unspecified; E11.22 Type 2 diabetes mellitus with diabetic chronic kidney disease; E78.5 Hyperlipidemia, unspecified; I25.10 Atherosclerotic heart disease of native coronary artery without angina pectoris; K21.9 Gastro-esophageal reflux disease without esophagitis; K80.20 Calculus of gallbladder without cholecystitis without obstruction; D63.8 Anemia in other chronic diseases classified elsewhere; E78.00 Pure hypercholesterolemia, unspecified; E11.42 Type 2 diabetes mellitus with diabetic polyneuropathy; K59.00 Constipation, unspecified; W01.0XXA Fall on same level from slipping, tripping and stumbling without subsequent striking against object, initial encounter; Y93.89 Activity, other specified; Y92.89 Other specified places as the place of occurrence of the external cause; Y99.8 Other external cause status; Z79.4 Long term (current) use of insulin; Z82.49 Family history of ischemic heart disease and other diseases of the circulatory system; Z87.891 Personal history of nicotine dependence; Z99.2 Dependence on renal dialysis; Z83.3 Family history of diabetes mellitus; Z68.22 Body mass index [BMI] 22.0-22.9, adult
CPT/HCPCS: 36415; 71045; 73502; 76000; 76700; 80048; 80061; 80076; 82962; 82977; 83735; 84100; 86850; 86900; 93005; 93970; 96374; 96375; 97116; 97163; 97166; 97530; 99285; C1713; J0690; J0885; J1170; J1650; J1815; J2270; J2370; J2405; J2704; J3010; J3370; J3490

== ENCOUNTER 2018-06-16 23:34 | Inpatient (IN) | payer MEDICARE, OTHER ==
[~2018-06-16] VITALS: Ht 165.1 cm; Wt 61.0 kg
[2018-06-16 23:34] VITALS: BP 98/58
[2018-06-16 23:35] VITALS: BP 98/58
[2018-06-17] MEDS ORDERED: DEXTROSE 50% WATER 50ML SYRINGE IV PRN (01:15)
[2018-06-17] MEDS ORDERED: GUAIFENESIN 200MG/10ML SUGAR FREE UDC PO PRN (01:15)
[2018-06-17] MEDS ORDERED: CLONIDINE 0.1MG TABLET PO PRN (01:15)
[2018-06-17] MEDS ORDERED: MAGNESIUM HYDROXIDE 400MG/5ML 30ML UDC PO PRN (01:15)
[2018-06-17] MEDS ORDERED: DIPHENHYDRAMINE 50MG/ML VIAL IV PRN (01:15)
[2018-06-17] MEDS ORDERED: MAGNESIUM/ALUMINUM HYDROXIDE/SIMETHICONE 30ML UDC PO PRN (01:15)
[2018-06-17] MEDS ORDERED: HYDROMORPHONE HCL/PF 2MG/ML CPJ IV PRN (01:15)
[2018-06-17] MEDS ORDERED: LACTULOSE 20G/30ML UDC PO PRN (01:15)
[2018-06-17] MEDS ORDERED: HYDROCODONE/ACETAMINOPHEN 5/325MG TABLET PO PRN (01:15)
[2018-06-17] MEDS ORDERED: ONDANSETRON HCL 4MG/2ML INJ IV PRN (01:15)
[2018-06-17] MEDS: BLOOD SUGAR DIAGNOSTIC STRIP TEST SCH ×4 (06:30→21:07)
[2018-06-17 07:11] LABS: HEMATOCRIT. 27.9 % (42.0-52.0); HEMOGLOBIN. 9.4 g/dL (14.0-18.0); MEAN CORPUSCULAR HEMOGLOBIN 33.6 pg (28.0-32.0); MEAN PLATELET VOLUME 10.4 fl (7.4-10.4); PLATELET 219 x1000/uL (130-400); RED BLOOD CELL COUNT 2.79 mill/uL (4.7-6.1); RED CELL DISTRIBUTION WIDTH 18.8 % (11.6-14.6)
[2018-06-17 07:18] LABS: CHLORIDE 99 mEq/L (98-107)
[2018-06-17 07:27] LABS: PHOSPHORUS 6.8 mg/dL (2.5-4.9)
[2018-06-17] MEDS: INSULIN LISPRO 100 UNITS/ML SUBCUT SCH ×4 (08:06→21:00)
[2018-06-17] MEDS: ENOXAPARIN 30MG/0.3ML SYR SUBCUT SCH (08:08)
[2018-06-17 08:09] VITALS: BP 99/54
[2018-06-17] MEDS ORDERED: AMLODIPINE 10MG TABLET PO SCH (09:00)
[2018-06-17] MEDS: DOCUSATE SODIUM 100MG CAPSULE PO SCH ×2 (09:32→17:47)
[2018-06-17 13:25] LABS: NUCLEATED RED BLOOD CELLS 1 /100 WBC; PLATELET ESTIMATE NORMAL
[2018-06-17] MEDS: CALCIUM ACETATE 667MG CAPSULE PO SCH ×2 (14:31→17:47)
[2018-06-17 20:00] VITALS: BP 92/53
[2018-06-17] MEDS: AMLODIPINE 10MG TABLET PO SCH (21:00)
[2018-06-17] MEDS: ATORVASTATIN CALCIUM 40MG TABLET PO SCH (21:03)
[2018-06-18] MEDS: ACETAMINOPHEN 325MG TABLET PO PRN (02:07)
[2018-06-18] MEDS: BLOOD SUGAR DIAGNOSTIC STRIP TEST SCH ×4 (06:15→21:34)
[2018-06-18] MEDS: INSULIN LISPRO 100 UNITS/ML SUBCUT SCH ×4 (06:15→21:00)
[2018-06-18 06:27] LABS: HEMATOCRIT. 27.5 % (42.0-52.0); HEMOGLOBIN. 9.4 g/dL (14.0-18.0); MEAN CORPUSCULAR HEMOGLOBIN 33.4 pg (28.0-32.0); MEAN CORPUSCULAR VOLUME 98.1 fL (80.0-94.0); MEAN PLATELET VOLUME 9.9 fl (7.4-10.4); PLATELET 241 x1000/uL (130-400); RED CELL DISTRIBUTION WIDTH 18.5 % (11.6-14.6)
[2018-06-18 06:44] LABS: PHOSPHORUS 4.8 mg/dL (2.5-4.9)
[2018-06-18 08:06] VITALS: BP 100/55
[2018-06-18] MEDS: DOCUSATE SODIUM 100MG CAPSULE PO SCH ×2 (08:19→16:53)
[2018-06-18] MEDS: AMLODIPINE 10MG TABLET PO SCH (08:19)
[2018-06-18 08:22] LABS: PLATELET ESTIMATE NORMAL
[2018-06-18] MEDS: CALCIUM ACETATE 667MG CAPSULE PO SCH ×3 (08:44→17:29)
[2018-06-18] MEDS: ENOXAPARIN 30MG/0.3ML SYR SUBCUT SCH (08:46)
[2018-06-18 20:00] VITALS: BP 96/57
[2018-06-18] MEDS: ATORVASTATIN CALCIUM 40MG TABLET PO SCH (21:30)
[2018-06-18] MEDS: EPOETIN ALFA 10000UNITS/ML VIAL SUBCUT SCH (21:31)
[2018-06-19] MEDS: ACETAMINOPHEN 325MG TABLET PO PRN
[2018-06-19] MEDS: BLOOD SUGAR DIAGNOSTIC STRIP TEST SCH ×4 (06:15→20:51)
[2018-06-19] MEDS: INSULIN LISPRO 100 UNITS/ML SUBCUT SCH ×4 (06:16→20:58)
[2018-06-19 06:40] LABS: HEMATOCRIT. 28.2 % (42.0-52.0); HEMOGLOBIN. 9.5 g/dL (14.0-18.0); MEAN CORPUSCULAR HEMOGLOBIN 33.6 pg (28.0-32.0); MEAN CORPUSCULAR VOLUME 99.4 fL (80.0-94.0); PLATELET 244 x1000/uL (130-400); RED BLOOD CELL COUNT 2.83 mill/uL (4.7-6.1); RED CELL DISTRIBUTION WIDTH 18.6 % (11.6-14.6)
[2018-06-19 07:01] LABS: FERRITIN 1424 ng/mL (22-322); PROSTRATE SPECIFIC AG TOTAL 1.38 ng/mL (0.0-4.0)
[2018-06-19 07:11] LABS: PHOSPHORUS 4.9 mg/dL (2.5-4.9)
[2018-06-19 07:53] LABS: VITAMIN B12 SERUM >2000 pg/mL pg/mL (211-911)
[2018-06-19 08:31] VITALS: BP 101/55
[2018-06-19] MEDS: DOCUSATE SODIUM 100MG CAPSULE PO SCH ×2 (09:27→17:16)
[2018-06-19] MEDS: ENOXAPARIN 30MG/0.3ML SYR SUBCUT SCH (09:27)
[2018-06-19] MEDS: CALCIUM ACETATE 667MG CAPSULE PO SCH ×3 (09:27→17:16)
[2018-06-19 12:31] LABS: PLATELET ESTIMATE NORMAL
[2018-06-19] MEDS ORDERED: DIPHENHYDRAMINE 25MG CAPSULE PO PRN (15:45)
[2018-06-19 20:00] VITALS: BP 105/60
[2018-06-19] MEDS: ATORVASTATIN CALCIUM 40MG TABLET PO SCH (20:57)
[2018-06-20] MEDS: ACETAMINOPHEN 325MG TABLET PO PRN ×2 (03:38→21:40)
[2018-06-20] MEDS: BLOOD SUGAR DIAGNOSTIC STRIP TEST SCH ×4 (06:02→21:39)
[2018-06-20 06:21] LABS: HEMATOCRIT. 27.5 % (42.0-52.0); HEMOGLOBIN. 9.3 g/dL (14.0-18.0); MEAN CORPUSCULAR VOLUME 100.3 fL (80.0-94.0); MEAN PLATELET VOLUME 9.9 fl (7.4-10.4); PLATELET 240 x1000/uL (130-400); RED BLOOD CELL COUNT 2.74 mill/uL (4.7-6.1); RED CELL DISTRIBUTION WIDTH 18.8 % (11.6-14.6)
[2018-06-20 06:32] LABS: CHLORIDE 98 mEq/L (98-107)
[2018-06-20 06:38] LABS: PHOSPHORUS 4.1 mg/dL (2.5-4.9)
[2018-06-20 08:22] VITALS: BP 116/76
[2018-06-20] MEDS: CALCIUM ACETATE 667MG CAPSULE PO SCH ×3 (08:27→17:37)
[2018-06-20] MEDS: DOCUSATE SODIUM 100MG CAPSULE PO SCH ×2 (08:27→17:37)
[2018-06-20] MEDS: ENOXAPARIN 30MG/0.3ML SYR SUBCUT SCH (08:28)
[2018-06-20] MEDS: INSULIN LISPRO 100 UNITS/ML SUBCUT SCH ×4 (09:02→21:00)
[2018-06-20 13:15] LABS: NUCLEATED RED BLOOD CELLS 1 /100 WBC; PLATELET ESTIMATE NORMAL
[2018-06-20 20:00] VITALS: BP 104/60
[2018-06-20] MEDS: ATORVASTATIN CALCIUM 40MG TABLET PO SCH (21:40)
[2018-06-20 22:46] LABS: HEPATITIS B SURFACE ANTIGEN NEGATIVE
[2018-06-20 23:15] LABS: HEPATITIS A AB IGM NEGATIVE (NEGATIVE)
[2018-06-21] MEDS: BLOOD SUGAR DIAGNOSTIC STRIP TEST SCH ×4 (06:40→21:00)
[2018-06-21] MEDS: INSULIN LISPRO 100 UNITS/ML SUBCUT SCH ×4 (06:40→21:00)
[2018-06-21 08:00] VITALS: BP 101/62
[2018-06-21] MEDS: DOCUSATE SODIUM 100MG CAPSULE PO SCH ×2 (08:44→17:17)
[2018-06-21] MEDS: CALCIUM ACETATE 667MG CAPSULE PO SCH ×3 (08:44→17:17)
[2018-06-21] MEDS: ENOXAPARIN 30MG/0.3ML SYR SUBCUT SCH (08:45)
[2018-06-21 20:00] VITALS: BP 114/68
[2018-06-21] MEDS: EPOETIN ALFA 10000UNITS/ML VIAL SUBCUT SCH (22:15)
[2018-06-22] MEDS ORDERED: HYDROMORPHONE HCL/PF 2MG/ML CPJ IV PRN (04:30)
[2018-06-22] MEDS: BLOOD SUGAR DIAGNOSTIC STRIP TEST SCH ×4 (06:00→21:00)
[2018-06-22] MEDS: INSULIN LISPRO 100 UNITS/ML SUBCUT SCH ×4 (06:00→21:00)
[2018-06-22 06:37] LABS: INR 1.3
[2018-06-22 06:57] LABS: CHLORIDE 95 mEq/L (98-107)
[2018-06-22 07:05] LABS: PHOSPHORUS 5.6 mg/dL (2.5-4.9)
[2018-06-22 07:11] LABS: HEMATOCRIT. 27.1 % (42.0-52.0); HEMOGLOBIN. 9.1 g/dL (14.0-18.0); MEAN CORPUSCULAR HEMOGLOBIN 33.9 pg (28.0-32.0); MEAN PLATELET VOLUME 9.8 fl (7.4-10.4); PLATELET 240 x1000/uL (130-400); RED BLOOD CELL COUNT 2.68 mill/uL (4.7-6.1); RED CELL DISTRIBUTION WIDTH 19.2 % (11.6-14.6)
[2018-06-22 07:57] VITALS: BP 109/65
[2018-06-22] MEDS: DOCUSATE SODIUM 100MG CAPSULE PO SCH ×2 (09:09→18:05)
[2018-06-22] MEDS: CALCIUM ACETATE 667MG CAPSULE PO SCH ×3 (09:09→18:05)
[2018-06-22] MEDS: ENOXAPARIN 30MG/0.3ML SYR SUBCUT SCH (10:28)
[2018-06-22 15:35] LABS: PLATELET ESTIMATE NORMAL
[2018-06-22 20:00] VITALS: BP 104/67
[2018-06-22 21:55] VITALS: BP 116/65
[2018-06-23] MEDS: BLOOD SUGAR DIAGNOSTIC STRIP TEST SCH ×4 (06:12→21:00)
[2018-06-23] MEDS: INSULIN LISPRO 100 UNITS/ML SUBCUT SCH ×4 (06:12→21:00)
[2018-06-23 06:37] LABS: HEMATOCRIT. 27.8 % (42.0-52.0); HEMOGLOBIN. 9.2 g/dL (14.0-18.0); MEAN CORPUSCULAR HEMOGLOBIN 33.8 pg (28.0-32.0); MEAN CORPUSCULAR VOLUME 102.4 fL (80.0-94.0); MEAN PLATELET VOLUME 9.2 fl (7.4-10.4); PLATELET 245 x1000/uL (130-400); RED BLOOD CELL COUNT 2.72 mill/uL (4.7-6.1); RED CELL DISTRIBUTION WIDTH 19.6 % (11.6-14.6)
[2018-06-23 06:54] LABS: CHLORIDE 97 mEq/L (98-107)
[2018-06-23 07:12] LABS: PHOSPHORUS 5.1 mg/dL (2.5-4.9)
[2018-06-23 08:45] VITALS: BP 115/73
[2018-06-23] MEDS: DOCUSATE SODIUM 100MG CAPSULE PO SCH ×2 (09:00→16:31)
[2018-06-23 09:09] LABS: TRANSFERRIN 167 mg/dL (200-370)
[2018-06-23] MEDS: CALCIUM ACETATE 667MG CAPSULE PO SCH ×3 (09:11→16:31)
[2018-06-23] MEDS: ENOXAPARIN 30MG/0.3ML SYR SUBCUT SCH (09:11)
[2018-06-23 10:20] LABS: NUCLEATED RED BLOOD CELLS 2 /100 WBC
[2018-06-23 10:21] LABS: PLATELET ESTIMATE NORMAL
[2018-06-23 19:57] VITALS: BP 108/62
[2018-06-23] MEDS ORDERED: EPOETIN ALFA 10000UNITS/ML VIAL SUBCUT SCH (21:00)
[2018-06-24 06:28] LABS: HEMATOCRIT. 25.8 % (42.0-52.0); HEMOGLOBIN. 8.6 g/dL (14.0-18.0); MEAN CORPUSCULAR HEMOGLOBIN 34.7 pg (28.0-32.0); MEAN CORPUSCULAR VOLUME 104.4 fL (80.0-94.0); MEAN PLATELET VOLUME 9.2 fl (7.4-10.4); PLATELET 260 x1000/uL (130-400); RED BLOOD CELL COUNT 2.48 mill/uL (4.7-6.1); RED CELL DISTRIBUTION WIDTH 19.5 % (11.6-14.6)
[2018-06-24 06:30] LABS: PHOSPHORUS 6.2 mg/dL (2.5-4.9)
[2018-06-24] MEDS: BLOOD SUGAR DIAGNOSTIC STRIP TEST SCH ×4 (06:45→21:14)
[2018-06-24] MEDS: DOCUSATE SODIUM 100MG CAPSULE PO SCH ×2 (08:23→17:00)
[2018-06-24] MEDS: ENOXAPARIN 30MG/0.3ML SYR SUBCUT SCH (08:23)
[2018-06-24] MEDS: CALCIUM ACETATE 667MG CAPSULE PO SCH ×3 (08:23→17:00)
[2018-06-24] MEDS: OXYCODONE HCL 5MG TABLET PO PRN ×3 (08:35→21:22)
[2018-06-24] MEDS: INSULIN LISPRO 100 UNITS/ML SUBCUT SCH ×4 (09:00→21:20)
[2018-06-24 09:12] LABS: NUCLEATED RED BLOOD CELLS 1 /100 WBC; PLATELET ESTIMATE NORMAL
[2018-06-24 09:53] VITALS: BP 110/78
[2018-06-24] MEDS: CARVEDILOL 3.125 MG TABLET PO SCH ×2 (13:18→21:00)
[2018-06-24 17:11] LABS: 25-HYDROXY VITAMIN D3 10 ng/mL (.)
[2018-06-24 20:00] VITALS: BP 100/54
[2018-06-25] MEDS: BLOOD SUGAR DIAGNOSTIC STRIP TEST SCH ×4 (06:21→21:00)
[2018-06-25] MEDS: INSULIN LISPRO 100 UNITS/ML SUBCUT SCH ×4 (06:22→21:00)
[2018-06-25] MEDS: OXYCODONE HCL 5MG TABLET PO PRN (06:25)
[2018-06-25 06:32] LABS: HEMATOCRIT. 26.5 % (42.0-52.0); HEMOGLOBIN. 8.8 g/dL (14.0-18.0); MEAN CORPUSCULAR HEMOGLOBIN 34.4 pg (28.0-32.0); MEAN CORPUSCULAR VOLUME 103.1 fL (80.0-94.0); MEAN PLATELET VOLUME 8.7 fl (7.4-10.4); PLATELET 290 x1000/uL (130-400); RED BLOOD CELL COUNT 2.57 mill/uL (4.7-6.1); RED CELL DISTRIBUTION WIDTH 20.3 % (11.6-14.6)
[2018-06-25 07:11] LABS: PHOSPHORUS 5.3 mg/dL (2.5-4.9)
[2018-06-25 08:00] VITALS: BP 103/59
[2018-06-25] MEDS: CARVEDILOL 3.125 MG TABLET PO SCH ×2 (08:12→21:00)
[2018-06-25] MEDS: DOCUSATE SODIUM 100MG CAPSULE PO SCH ×2 (08:21→17:36)
[2018-06-25] MEDS: CALCIUM ACETATE 667MG CAPSULE PO SCH ×3 (08:21→17:36)
[2018-06-25] MEDS: ENOXAPARIN 30MG/0.3ML SYR SUBCUT SCH (08:22)
[2018-06-25 09:25] LABS: PLATELET ESTIMATE NORMAL
[2018-06-25 20:00] VITALS: BP 117/64
[2018-06-26] MEDS: INSULIN LISPRO 100 UNITS/ML SUBCUT SCH ×4 (06:59→21:00)
[2018-06-26] MEDS: BLOOD SUGAR DIAGNOSTIC STRIP TEST SCH ×4 (06:59→21:26)
[2018-06-26 07:19] LABS: HEMATOCRIT. 26.2 % (42.0-52.0); HEMOGLOBIN. 8.6 g/dL (14.0-18.0); MEAN CORPUSCULAR HEMOGLOBIN 34.2 pg (28.0-32.0); MEAN CORPUSCULAR VOLUME 104.4 fL (80.0-94.0); MEAN PLATELET VOLUME 8.9 fl (7.4-10.4); PLATELET 279 x1000/uL (130-400); RED BLOOD CELL COUNT 2.51 mill/uL (4.7-6.1); RED CELL DISTRIBUTION WIDTH 20.5 % (11.6-14.6)
[2018-06-26 08:06] VITALS: BP 102/56
[2018-06-26 08:09] LABS: PHOSPHORUS 5.4 mg/dL (2.5-4.9)
[2018-06-26] MEDS: CARVEDILOL 3.125 MG TABLET PO SCH ×2 (09:00→21:00)
[2018-06-26 09:19] VITALS: BP 102/56
[2018-06-26] MEDS: CALCIUM ACETATE 667MG CAPSULE PO SCH ×3 (09:28→16:38)
[2018-06-26] MEDS: DOCUSATE SODIUM 100MG CAPSULE PO SCH ×2 (09:28→16:38)
[2018-06-26 14:34] LABS: NUCLEATED RED BLOOD CELLS 1 /100 WBC; PLATELET ESTIMATE NORMAL
[2018-06-26 20:00] VITALS: BP 100/58
[2018-06-27] MEDS: INSULIN LISPRO 100 UNITS/ML SUBCUT SCH ×2 (05:44→13:22)
[2018-06-27] MEDS: BLOOD SUGAR DIAGNOSTIC STRIP TEST SCH ×2 (05:44→11:15)
[2018-06-27 07:50] LABS: HEMATOCRIT. 24.7 % (42.0-52.0); HEMOGLOBIN. 8.2 g/dL (14.0-18.0); MEAN CORPUSCULAR HEMOGLOBIN 35.1 pg (28.0-32.0); MEAN CORPUSCULAR VOLUME 104.9 fL (80.0-94.0); MEAN PLATELET VOLUME 8.8 fl (7.4-10.4); PLATELET 281 x1000/uL (130-400); RED BLOOD CELL COUNT 2.35 mill/uL (4.7-6.1); RED CELL DISTRIBUTION WIDTH 20.7 % (11.6-14.6)
[2018-06-27 08:00] VITALS: BP 106/60
[2018-06-27] MEDS: CARVEDILOL 3.125 MG TABLET PO SCH (09:00)
[2018-06-27] MEDS: CALCIUM ACETATE 667MG CAPSULE PO SCH ×2 (10:01→13:18)
[2018-06-27] MEDS: DOCUSATE SODIUM 100MG CAPSULE PO SCH (10:01)
[2018-06-27 12:22] VITALS: BP 112/69
[2018-06-28 02:02] LABS: NUCLEATED RED BLOOD CELLS 2 /100 WBC; PLATELET ESTIMATE NORMAL
== END 2018-06-27 14:20 | disposition home health service (06) | DRG 535 ==
PROVIDERS: ADMIT Physical Medicine & Rehabilitation Spinal Cord Injury Medicine; ATTEND Hospitalist
PROC: 5A1D70Z Performance of Urinary Filtration, Intermittent, Less than 6 Hours Per Day (ICD-10-PCS; principal; 2018-06-17)
PROC: 5A1D70Z Performance of Urinary Filtration, Intermittent, Less than 6 Hours Per Day (ICD-10-PCS; 2018-06-19)
PROC: 5A1D70Z Performance of Urinary Filtration, Intermittent, Less than 6 Hours Per Day (ICD-10-PCS; 2018-06-22)
PROC: 5A1D70Z Performance of Urinary Filtration, Intermittent, Less than 6 Hours Per Day (ICD-10-PCS; 2018-06-26)
DX: S72.141A Displaced intertrochanteric fracture of right femur, initial encounter for closed fracture (principal); N18.6 End stage renal disease; K76.7 Hepatorenal syndrome; I50.33 Acute on chronic diastolic (congestive) heart failure; E43 Unspecified severe protein-calorie malnutrition; R18.8 Other ascites; D62 Acute posthemorrhagic anemia; I13.2 Hypertensive heart and chronic kidney disease with heart failure and with stage 5 chronic kidney disease, or end stage renal disease; N25.81 Secondary hyperparathyroidism of renal origin; E11.42 Type 2 diabetes mellitus with diabetic polyneuropathy; E11.22 Type 2 diabetes mellitus with diabetic chronic kidney disease; R53.81 Other malaise; M79.609 Pain in unspecified limb; K74.60 Unspecified cirrhosis of liver; I25.10 Atherosclerotic heart disease of native coronary artery without angina pectoris; D63.8 Anemia in other chronic diseases classified elsewhere; E78.00 Pure hypercholesterolemia, unspecified; K80.20 Calculus of gallbladder without cholecystitis without obstruction; W01.0XXA Fall on same level from slipping, tripping and stumbling without subsequent striking against object, initial encounter; D72.829 Elevated white blood cell count, unspecified; K21.9 Gastro-esophageal reflux disease without esophagitis; K59.00 Constipation, unspecified; Z68.22 Body mass index [BMI] 22.0-22.9, adult; Z99.2 Dependence on renal dialysis; Z79.4 Long term (current) use of insulin; Z82.49 Family history of ischemic heart disease and other diseases of the circulatory system; Y93.89 Activity, other specified; Y92.098 Other place in other non-institutional residence as the place of occurrence of the external cause; Y99.8 Other external cause status
CPT/HCPCS: 36415; 71046; 76700; 80048; 82140; 82306; 82607; 82728; 82746; 82962; 83516; 83540; 83550; 83735; 84100; 84134; 84153; 84443; 84466; 86705; 86706; 86709; 86803; 87340; 93970; 97110; 97112; 97116; 97150; 97162; 97166; 97530; 97535; J0885; J1170; J1650; J1815; Q0163; G0103

== ENCOUNTER 2018-07-22 20:15 | Inpatient (IN) | payer MEDICARE, OTHER ==
[~2018-07-22] VITALS: Ht 160 cm; Wt 60.4 kg
[~2018-07-22 20:15] MED LIST changes: -ASPI-1159 PO; -CARV3.1242 PO; -CLOT15CR2 TP; -FURO40TA5 PO; -benazepril
[2018-07-22 21:38] LABS: HEMATOCRIT. 23.2 % (42.0-52.0); HEMOGLOBIN. 7.7 g/dL (14.0-18.0); MEAN CORPUSCULAR HEMOGLOBIN 36.6 pg (28.0-32.0); MEAN CORPUSCULAR VOLUME 110.9 fL (80.0-94.0); MEAN PLATELET VOLUME 9.7 fl (7.4-10.4); PLATELET 312 x1000/uL (130-400); RED CELL DISTRIBUTION WIDTH 17.8 % (11.6-14.6)
[2018-07-22 21:43] LABS: INR 1.6; PROTHROMBIN TIME 16.1 sec (9.6-11.0)
[2018-07-22 21:44] LABS: CHLORIDE 101 mEq/L (98-107)
[2018-07-22 22:03] LABS: NUCLEATED RED BLOOD CELLS 3 /100 WBC; PLATELET ESTIMATE NORMAL
[2018-07-22] MEDS ORDERED: PANTOPRAZOLE SODIUM 40 MG/VIAL IV STA (23:51)
[2018-07-23] VITALS (9 sets, daily range): BP systolic 103–123; BP diastolic 61–69
[2018-07-23] MEDS ORDERED: CEFTRIAXONE 1 G PREMIX 50 ML IV ONE
[2018-07-23] MEDS ORDERED: ONDANSETRON HCL 4MG/2ML INJ IV PRN (02:30)
[2018-07-23] MEDS ORDERED: IPRATROPIUM/ALBUTEROL 0.5-3(2.5)MG/3ML NEB INH PRN (02:30)
[2018-07-23] MEDS: SODIUM CHLORIDE 0.9% 1,000 ML IV SCH (05:47)
[2018-07-23 06:15] LABS: HEMATOCRIT. 24.5 % (42.0-52.0); HEMOGLOBIN. 8.1 g/dL (14.0-18.0); MEAN CORPUSCULAR HEMOGLOBIN 34.8 pg (28.0-32.0); MEAN CORPUSCULAR VOLUME 105.7 fL (80.0-94.0); MEAN PLATELET VOLUME 9.6 fl (7.4-10.4); PLATELET 268 x1000/uL (130-400); RED BLOOD CELL COUNT 2.32 mill/uL (4.7-6.1); RED CELL DISTRIBUTION WIDTH 20.1 % (11.6-14.6)
[2018-07-23] MEDS: PANTOPRAZOLE SODIUM 40 MG/VIAL IV SCH ×2 (08:29→21:31)
[2018-07-23 10:44] LABS: NUCLEATED RED BLOOD CELLS 4 /100 WBC; PLATELET ESTIMATE NORMAL
[2018-07-23] MEDS ORDERED: BACTERIOSTATIC SODIUM CHLORIDE 0.9% 30ML VIAL IJ ONE (13:15)
[2018-07-23] MEDS ORDERED: SIMETHICONE 40 MG/0.6 ML 30ML ONE (13:15)
[2018-07-23] MEDS: MIDODRINE HCL 5MG TABLET PO SCH ×2 (14:00→17:17)
[2018-07-23] MEDS: CALCIUM ACETATE 667MG CAPSULE PO SCH (17:17)
[2018-07-23] MEDS ORDERED: FENTANYL CITRATE/PF 50MCG/ML 2ML VIAL ONE (17:56)
[2018-07-23] MEDS ORDERED: MIDAZOLAM HCL 5 MG/5 ML VIAL ONE (17:56)
[2018-07-23] MEDS ORDERED: DIPHENHYDRAMINE 50MG/ML VIAL ONE (17:57)
[2018-07-23] MEDS ORDERED: MIDAZOLAM HCL 5 MG/5 ML VIAL IV PRN (18:13)
[2018-07-23] MEDS ORDERED: FENTANYL CITRATE/PF 50MCG/ML 2ML VIAL IV PRN (18:14)
[2018-07-23] MEDS ORDERED: PHYTONADIONE 10MG/ML AMP SUBCUT NR (18:15)
[2018-07-23 20:42] LABS: HEMATOCRIT 27.5 % (42.0-52.0); HEMOGLOBIN 9.1 g/dL (14.0-18.0)
[2018-07-23] MEDS ORDERED: PANTOPRAZOLE SODIUM 40 MG/VIAL IV SCH (21:00)
[2018-07-23] MEDS: SUCRALFATE 1G TABLET PO SCH (21:31)
[2018-07-24] VITALS (12 sets, daily range): BP systolic 102–140; BP diastolic 53–84
[2018-07-24 01:06] LABS: HEMATOCRIT 26.4 % (42.0-52.0); HEMOGLOBIN 8.7 g/dL (14.0-18.0)
[2018-07-24] MEDS: SODIUM CHLORIDE 0.9% 1,000 ML IV SCH (06:48)
[2018-07-24 07:21] LABS: INR 1.4; PROTHROMBIN TIME 13.8 sec (9.6-11.0)
[2018-07-24 07:23] LABS: HEMATOCRIT. 24.8 % (42.0-52.0); HEMOGLOBIN. 8.3 g/dL (14.0-18.0); MEAN CORPUSCULAR HEMOGLOBIN 35.6 pg (28.0-32.0); MEAN CORPUSCULAR VOLUME 106.4 fL (80.0-94.0); MEAN PLATELET VOLUME 9.7 fl (7.4-10.4); PLATELET 267 x1000/uL (130-400); RED BLOOD CELL COUNT 2.33 mill/uL (4.7-6.1); RED CELL DISTRIBUTION WIDTH 23.2 % (11.6-14.6)
[2018-07-24 07:33] LABS: CHLORIDE 102 mEq/L (98-107)
[2018-07-24 07:40] LABS: PHOSPHORUS 4.9 mg/dL (2.5-4.9)
[2018-07-24] MEDS: CALCIUM ACETATE 667MG CAPSULE PO SCH ×3 (08:00→18:21)
[2018-07-24] MEDS: PANTOPRAZOLE SODIUM 40 MG/VIAL IV SCH ×2 (09:00→21:50)
[2018-07-24] MEDS: FOLIC ACID/VITAMIN B COMP W-C TABLET PO SCH (09:00)
[2018-07-24] MEDS: SUCRALFATE 1G TABLET PO SCH ×4 (09:14→21:50)
[2018-07-24] MEDS: MIDODRINE HCL 5MG TABLET PO SCH ×3 (09:14→18:21)
[2018-07-24] MEDS: PHYTONADIONE 10MG/ML AMP SUBCUT SCH (09:15)
[2018-07-24 10:03] LABS: NUCLEATED RED BLOOD CELLS 2 /100 WBC
[2018-07-24 10:04] LABS: PLATELET ESTIMATE NORMAL
[2018-07-24 12:31] LABS: HEPATITIS B SURFACE AB 168.1 mIU/mL
[2018-07-24 12:41] LABS: HEPATITIS B SURFACE ANTIGEN NEGATIVE
[2018-07-25] VITALS (18 sets, daily range): BP systolic 96–140; BP diastolic 59–98
[2018-07-25 07:43] LABS: HEMATOCRIT. 27.6 % (42.0-52.0); HEMOGLOBIN. 8.9 g/dL (14.0-18.0); MEAN CORPUSCULAR HEMOGLOBIN 34.6 pg (28.0-32.0); MEAN CORPUSCULAR VOLUME 107.1 fL (80.0-94.0); MEAN PLATELET VOLUME 9.8 fl (7.4-10.4); PLATELET 238 x1000/uL (130-400); RED BLOOD CELL COUNT 2.58 mill/uL (4.7-6.1); RED CELL DISTRIBUTION WIDTH 22.4 % (11.6-14.6)
[2018-07-25] MEDS: SUCRALFATE 1G TABLET PO SCH ×2 (08:15→13:22)
[2018-07-25] MEDS: CALCIUM ACETATE 667MG CAPSULE PO SCH ×2 (08:15→13:22)
[2018-07-25] MEDS: FOLIC ACID/VITAMIN B COMP W-C TABLET PO SCH (09:39)
[2018-07-25] MEDS: MIDODRINE HCL 5MG TABLET PO SCH ×2 (09:40→13:23)
[2018-07-25] MEDS: PHYTONADIONE 10MG/ML AMP SUBCUT SCH (09:40)
[2018-07-25] MEDS ORDERED: PANTOPRAZOLE 40MG DR TABLET PO SCH (10:00)
[2018-07-25 12:30] LABS: NUCLEATED RED BLOOD CELLS 2 /100 WBC
[2018-07-25 12:31] LABS: PLATELET ESTIMATE NORMAL
== END 2018-07-25 17:10 | disposition home or self-care (01) | DRG 380 ==
LOC: ER 20:15 → 5EST 07-23 02:11 → EDBEDREQ 07-23 02:15 → EDBEDREQTM 07-23 02:15 → ENRESERV 07-23 03:34
PROVIDERS: ADMIT Internal Medicine; ATTEND Internal Medicine
PROC: 30233N1 Transfusion of Nonautologous Red Blood Cells into Peripheral Vein, Percutaneous Approach (ICD-10-PCS; principal; 2018-07-23)
PROC: 0DB68ZX Excision of Stomach, Via Natural or Artificial Opening Endoscopic, Diagnostic (ICD-10-PCS; 2018-07-23)
PROC: 5A1D70Z Performance of Urinary Filtration, Intermittent, Less than 6 Hours Per Day (ICD-10-PCS; 2018-07-24)
DX: K22.11 Ulcer of esophagus with bleeding (principal); N18.6 End stage renal disease; I13.2 Hypertensive heart and chronic kidney disease with heart failure and with stage 5 chronic kidney disease, or end stage renal disease; B19.10 Unspecified viral hepatitis B without hepatic coma; K76.6 Portal hypertension; K29.01 Acute gastritis with bleeding; K70.31 Alcoholic cirrhosis of liver with ascites; I25.10 Atherosclerotic heart disease of native coronary artery without angina pectoris; E11.22 Type 2 diabetes mellitus with diabetic chronic kidney disease; I50.9 Heart failure, unspecified; D64.9 Anemia, unspecified; K80.20 Calculus of gallbladder without cholecystitis without obstruction; K21.9 Gastro-esophageal reflux disease without esophagitis; K44.9 Diaphragmatic hernia without obstruction or gangrene; K31.89 Other diseases of stomach and duodenum; Z96.649 Presence of unspecified artificial hip joint; I95.89 Other hypotension; F10.21 Alcohol dependence, in remission; K59.00 Constipation, unspecified; Z99.2 Dependence on renal dialysis; Z95.828 Presence of other vascular implants and grafts; Z79.899 Other long term (current) drug therapy; Z79.4 Long term (current) use of insulin; Z82.49 Family history of ischemic heart disease and other diseases of the circulatory system; Z91.81 History of falling
CPT/HCPCS: 36415; 71045; 74176; 76705; 80048; 82962; 83735; 84100; 85014; 85018; 86706; 86708; 86803; 86850; 86900; 86920; 87340; 88305; 88313; 93005; 96374; 97162; 99285; C9113; J0696; J1200; J2250; J3010; J3430; J3490; J7040; J7620; P9016

== ENCOUNTER 2018-08-20 23:00 | Emergency (ER) | payer MEDICARE, OTHER ==
[~2018-08-20] VITALS: Ht 160 cm; Wt 61.0 kg
[2018-08-20 23:10] VITALS: BP 109/67
== END 2018-08-21 05:57 | disposition left against medical advice (07) ==
LOC: ER 23:52
DX: Z53.21 Procedure and treatment not carried out due to patient leaving prior to being seen by health care provider (principal)